=== PATIENT | male | born 1945 | race Caucasian/White ===

== ENCOUNTER 2020-10-10 16:08 | Emergency (ER) | payer MEDICARE, OTHER ==
[2020-10-10 16:23] VITALS: BP 146/100
--- NOTE | 2020-10-10 16:33 | ED Physician Documentation ---
History of Present Illness - Stated complaint Stated Complaint: LT FINGER INJ - Chief complaint Chief Complaint: General - History obtained from History obtained from: Patient - History of Present Illness Timing: Prior to arrival - Additonal information Additional information: 75-year-old male presents to the emergency department for reevaluation of the crush injury to his left finger. I saw this gentleman earlier for a crush injury that was sustained when he crushed his finger between a wood splitter and a log. He did have a large ulceration on the ulnar side of the finger that was a macerated wound. We were unable to close it primarily. We could only approximate the wound using sutures. He also had a tuft fracture at the distal phalanx. Because it was a crush injury I placed a light dressing on it however the dressing has been off and he is continued to bleed therefore he represents here. Should be noted that he was given Ancef during the earlier emergency department visit as well as a prescription for Keflex. His tetanus is up-to-date Review of Systems Constitutional: reports: Reviewed and negative Eyes: reports: Reviewed and negative Ears: reports: Reviewed and negative Nose: reports: Reviewed and negative Throat: reports: Reviewed and negative Cardiac: reports: Reviewed and negative Respiratory: reports: Reviewed and negative GI: reports: Reviewed and negative Skin: reports: Laceration (s) (Left finger) PD PAST MEDICAL HISTORY - Present Medications Home Medications: Ambulatory Orders Medication Instructions Recorded Confirmed Cephalexin [Keflex] 500 mg PO Q6H #28 capsule 10/10/20 Hydrocodone/Acetaminophen [[place] 1 each PO TID PRN #15 tablet 10/10/20 5-325 Tablet] - Allergies Allergies/Adverse Reactions: Allergies Allergy/AdvReac Type Severity Reaction Status Date / Time codeine AdvReac Nausea Verified 10/10/20 10:55 PD ED PE EXPANDED - Extremities Extremities: Left finger(s) (Index finger with a macerated ecchymotic appearance. Ulnar side of finger has 4 approximation/retention sutures in place. The distal nailbed shows evidence of previous trephination. There is a small amount of bleeding that persists between the cuticle and the distal tip of the finger.) Results - Vitals Vitals: Vital Signs - 24 hr 10/10/20 16:21 Temperature 37.2 C Heart Rate 112 H Respiratory 20 Rate Blood Pressure 146/100 H O2 Saturation 96 Oxygen O2 Source Room air PD MEDICAL DECISION MAKING - ED course Complexity details: reviewed results ED course: 75-year-old male presents emergency department after being seen earlier today with a crush/macerated left index finger. Unfortunately the dressing that I placed earlier became loose and has fallen off. There is a small amount of bleeding coming from the distal tip of the finger near the cuticle. Unfortunately this likely represents the tuft or comminuted distal phalanx fracture. With gentle pressure I was able to observe the wound and noted that no further bleeding persisted. I did place Gelfoam over the wound and rewrapped it using gauze and Coban. His wound and finger will be observed over the next 20 to 30 minutes. If no bleeding comes through the dressing he will be discharged home and return again tomorrow for a wound check Departure - Departure Disposition: 01 Home, Self Care Clinical Impression: Visit for wound check Condition: Stable Record reviewed to determine appropriate education?: Yes Comments: Sameer I will see you tomorrow for a wound check of this finger. Try and keep it elevated as much as you can tonight. I do recommend that he continue to take the antibiotics that were prescribed for pain. I would also recommend that you take the hydrocodone tonight but do not drive after taking it.
== END 2020-10-10 16:59 | disposition home or self-care (01) ==
LOC: ED 16:08
DX: S62.631B Displaced fracture of distal phalanx of left index finger, initial encounter for open fracture (principal); W23.0XXA Caught, crushed, jammed, or pinched between moving objects, initial encounter; Y93.89 Activity, other specified; Y92.009 Unspecified place in unspecified non-institutional (private) residence as the place of occurrence of the external cause
CPT/HCPCS: 12042; 73140; 96372; 99281; 99283; A9270

== ENCOUNTER 2020-10-11 11:04 | Emergency (ER) | payer MEDICARE ==
[2020-10-11 11:18] VITALS: BP 177/84
--- NOTE | 2020-10-11 11:30 | ED Physician Documentation ---
History of Present Illness - Stated complaint Stated Complaint: DRESSING CHANGE - Chief complaint Chief Complaint: General - History obtained from History obtained from: Patient - Additonal information Additional information: 75-year-old gentleman has a finger injury from yesterday and presents as recommended for wound check. He did have some bleeding and uncontrolled pain overnight. Has an appointment with his hand surgeon on Friday. Review of Systems Constitutional: reports: Reviewed and negative Eyes: reports: Reviewed and negative Ears: reports: Reviewed and negative Nose: reports: Reviewed and negative PD PAST MEDICAL HISTORY - Past Medical History Past Medical History: Yes Cardiovascular: High cholesterol Respiratory: None Neuro: None Endocrine/Autoimmune: HyPOthyroidism GI: None : Benign prostate hypertrophy HEENT: None Psych: None Musculoskeletal: None Derm: None - Past Surgical History Past Surgical History: Yes General: Cholecystectomy Ortho: Rotator cuff repair, Arthroscopic surgery, Spine surgery, Other HEENT: Tonsil/Adenoidectomy - Present Medications Home Medications: Ambulatory Orders Medication Instructions Recorded Confirmed Cephalexin [Keflex] 500 mg PO Q6H #28 capsule 10/10/20 Hydrocodone/Acetaminophen [[place] 1 each PO TID PRN #15 tablet 10/10/20 5-325 Tablet] Atorvastatin Calcium 1 tab DAILY 10/11/20 10/11/20 Levothyroxine [Synthroid] 1 tab DAILY 10/11/20 10/11/20 Oxycodone HCl/Acetaminophen 1 - 2 each PO Q6H PRN #14 tablet 10/11/20 [Percocet 5-325 mg Tablet] Tamsulosin [Flomax] 1 tab DAILY 10/11/20 10/11/20 - Allergies Allergies/Adverse Reactions: Allergies Allergy/AdvReac Type Severity Reaction Status Date / Time codeine AdvReac Nausea Verified 10/11/20 11:17 - Social History Does the pt smoke?: No Smoking Status: Never smoker Does the pt drink ETOH?: Yes - Immunizations Immunizations are current?: Yes PD ED PE NORMAL - Vitals Vital signs reviewed: Yes - General General: Alert and oriented X 3, No acute distress - Extremities Extremities: Other (On the left index finger there is an extensive laceration along the ulnar surface which is loosely closed with sutures and a smaller laceration over the dorsal PIP which is closed. He is insensate on the ulnar side of the digit distally, has sensation on the radial side. Pulse oximetry in the affe) - Neuro Neuro: Alert and oriented X 3, Normal speech Results - Vitals Vitals: Vital Signs - 24 hr 10/11/20 11:07 Temperature 36 C L Heart Rate 74 Respiratory 16 Rate Blood Pressure 177/84 H O2 Saturation 99 Oxygen O2 Source Room air PD MEDICAL DECISION MAKING - ED course ED course: The wound was redressed with Xeroform and tube gauze, discussed with him that it is a pretty bad injury and he may lose the finger but he has appropriate follow-up. Needed something stronger for pain. Departure - Departure Disposition: 01 Home, Self Care Clinical Impression: Visit for wound check Condition: Good Record reviewed to determine appropriate education?: Yes Prescriptions: Oxycodone HCl/Acetaminophen [Percocet 5-325 mg Tablet] 1 - 2 each PO Q6H PRN #14 tablet PRN Reason: pain Comments: Return as needed for dressing changes, make sure you follow-up with your hand surgeon on Friday.
== END 2020-10-11 11:33 | disposition home or self-care (01) ==
LOC: ED 11:04
DX: S62.631B Displaced fracture of distal phalanx of left index finger, initial encounter for open fracture (principal); W23.0XXA Caught, crushed, jammed, or pinched between moving objects, initial encounter; Y93.89 Activity, other specified; Y92.009 Unspecified place in unspecified non-institutional (private) residence as the place of occurrence of the external cause; Z48.00 Encounter for change or removal of nonsurgical wound dressing
CPT/HCPCS: 99281; 99283